=== PATIENT | male | born 1955 | race Caucasian/White ===

== ENCOUNTER 2022-05-02 17:25 | Inpatient (IN) | payer MEDICARE, BC ==
[~2022-05-02] VITALS: Ht 172.7 cm; Wt 74.4 kg
--- NOTE | 2022-05-02 17:42 | NUR ---
ILL THIS PAST SUNDAY WELL. BIB [facility] FROM HOME,TOOK 10 TABLETS OF AMBIEN (10 MG/TAB) AT 10 AM. PT IS DROWSY, RESPONDS TO PAIN. ATTACHED TO MONITOR, PT IS HYPOTENSIVE, AWARE. PT STATED THAT HE TOOK PILL THIS PAST SUNDAY WELL. DR HOLT AT BEDSIDE. GULSHAN D ORDERS
[2022-05-02 18:05] LABS: BASOPHILS % (AUTO) 0.2 % (0.0-2.0); EOSINOPHILS % (AUTO) 0.1 % (0.0-6.0); HEMATOCRIT 47 % (39-51); HEMOGLOBIN 15.2 g/dL (13.5-17.5); LYMPHOCYTES % (AUTO) 7.9 % (20.0-44.0); MEAN CORPUSCULAR HGB CONC 32 g/dl (31.0-36.0); MEAN CORPUSCULAR VOLUME 81 fL (80-96); MONOCYTES # (AUTO) 0.6 K/uL (0.1-1.30); MONOCYTES % (AUTO) 4.8 % (2.0-12.0); NEUTROPHILS # (AUTO) 10.8 K/uL (1.8-8.9); PLATELET COUNT (AUTO) 222 K/uL (150-450); RED BLOOD CELL COUNT(AUTO) 5.78 MIL/uL (4.5-6.0); WHITE BLOOD COUNT (AUTO) 12.4 K/uL (4.3-11.0)
--- NOTE | 2022-05-02 18:06 | NUR ---
POISON CONTROL CALLED,SPOKE WITH HARRISON, RECOMMENDED 6 HR MINIMUM OBSERVATION WITH SUPPORTIVE CARE, WATCH OUT FOR SEIZURES DUE TO HIS OTHER MEDICATIONS. DR HOLT MADE AWARE
[2022-05-02 18:16] LABS: CALCIUM, SERUM 8.4 mg/dL (8.5-10.1); CARBON DIOXIDE 29 mmol/L (21-32); CHLORIDE 103 mmol/L (98-107); CREATININE 1.1 mg/dL (0.6-1.3); GLUCOSE 105 mg/dL (74-106); POTASSIUM 4.2 mmol/L (3.5-5.1); SODIUM SERUM 139 mmol/L (136-145); UREA NITROGEN, BLOOD 32 mg/dL (7-18)
--- NOTE | 2022-05-02 18:20 | NUR ---
CHRIS COLLECTED AND SENT
--- NOTE | 2022-05-02 18:20 | NUR ---
URINE COLLECTED AND SENT
[2022-05-02 18:22] LABS: ALANINE AMINOTRANSFERASE 18 U/L (12-78); ALBUMIN 3.6 g/dL (3.4-5.0); ALKALINE PHOSPHATASE 46 U/L (46-116); ASPARTATE AMINOTRANSFERASE 8 U/L (15-37); BILIRUBIN,DIRECT 0.1 mg/dL (0.0-0.2); BILIRUBIN,TOTAL 0.7 mg/dL (0.2-1.0); TOTAL PROTEIN, SERUM 6.8 g/dL (6.4-8.2)
[2022-05-02 18:23] LABS: ACETAMINOPHEN < 2 ug/ml (10-30); ALCOHOL, BLOOD < 3 mg/dL (0-0)
--- NOTE | 2022-05-02 19:15 | NUR ---
MOVE SHEET SUBMITTED.
[2022-05-02 19:41] LABS: BILIRUBIN,URINE NEGATIVE (NEGATIVE); COLOR,URINE YELLOW (YELLOW); LEUKOCYTE ESTERASE ,URINE NEGATIVE (NEGATIVE); NITRITE, URINE NEGATIVE (NEGATIVE); PH,URINE 5.5 (5.0-8.0); PROTEIN,URINE NEGATIVE (NEGATIVE); UGLUCOSE >=1000 mg/dL (NEGATIVE); UROBILINOGEN,URINE 0.2 EU/dL (0.2)
--- NOTE | 2022-05-02 19:54 | NUR ---
[facility] SWAB COLLECTED AND SENT TO LAB. PATIENT'S BELONGINGS LIST DONE.
[2022-05-02] MEDS ORDERED: IV NS 0.9% 250 ML BAG IV ONE (20:00)
--- NOTE | 2022-05-02 22:50 | NUR ---
REPORT GIVEN TO CATRACHITA MOYA
--- NOTE | 2022-05-02 23:28 | NUR ---
PT TRANSFERRED VSS.
[2022-05-03] MEDS ORDERED: AZIL40TA PO (00:11)
[2022-05-03] MEDS ORDERED: FAMO20TA8 PO (00:12)
[2022-05-03] MEDS ORDERED: BUSP30TA2 PO (00:13)
[2022-05-03] MEDS ORDERED: EMPA25TA PO (00:14)
[2022-05-03] MEDS ORDERED: FLUO40CA49 PO (00:15)
[2022-05-03] MEDS ORDERED: QUET25TA PO (00:16)
[2022-05-03] MEDS ORDERED: OMEP20CA15 PO (00:17)
[2022-05-03] MEDS ORDERED: METO5TAB2 PO (00:18)
[2022-05-03] MEDS ORDERED: ROSU5TAB13 PO (00:20)
[2022-05-03] MEDS ORDERED: ACETAMINOPHEN 325 MG TABLET PO PRN (00:30)
[2022-05-03] MEDS ORDERED: MAG HYDROX/AL HYDROX/SIMETH 30 ML UDC PO PRN (00:30)
[2022-05-03] MEDS ORDERED: BLOOD SUGAR DIAGNOSTIC 1 EACH STRIP IN ONE (00:30)
[2022-05-03] MEDS ORDERED: clonazePAM 0.5 MG TABLET PO SCH (00:30)
[2022-05-03] MEDS ORDERED: MAGNESIUM HYDROXIDE 30 ML UDC PO PRN (00:30)
--- NOTE | 2022-05-03 01:01 | NUR ---
GPS RN ADMITTING NOTES: PATIENT ARRIVED THIS UNIT ON A STRETCHER WITH AN ER ESCORT AT 2330. PATIENT IS ON A 5150 HOLD FOR DTS, HOLD WAS PLACED ON 05/02/22 @ 2141. PER HOLD, PATIENT WAS BIB [facility] TO ER BECAUSE PATIENT HAD OVERDOSED ON 10 PILLS OF 10MG OF AMBIEN TWICE IN A ROW. PATIENT TOLD [facility] HE IS GOING TO KEEP ON DOING IT UNTIL "THEY FIND OUT WHAT IS WRONG WITH ME AND MY GI ISSUES". PER HOLD, PATIENT REPORTED PATIENT HAS BEEN DEPRESSED LATELY, ISOLATIVE AND WITHDRAWN. UPON FACE TO FACE EVALUATION, PATIENT IS A/O X2, APPEARS DEPRESSED, BLUNTED AFFECT, SLURRED SPEECH, LETHARGIC, DISORGANIZED, LOOSE ASSOCIATIONS, POOR HISTORIAN AND UNABLE TO AMBULATE. PATIENT HAS NO COMPLAINTS OF PAIN AT THIS TIME. NO S/S OF DISTRESS. RESPIRATION EVEN AND UNLABORED WITH EQUAL RISE AND FALL OF THE CHEST, ON ROOM AIR. ACCU CHEK DONE, BS88MG/DL. SKIN ASSESSMENT DONE, SKIN INTACT. PATIENT DENIES SI/HI AT THIS TIME. PATIENT REFUSED TO SIGNS ALL ADMISSION PAPER WORK. PATIENT ADVISED OF HIS HOLD AND PATIENT RIGHTS BOOKLET AND PRESCRIPTION MEDICATION GUIDE GIVEN. PATIENT IS UNDER THE PSYCHIATRIC CARE OF DR. URENA AND MEDICAL CARE OF DR HOSKINS. PATIENT BELONGINGS INVENTORIED AND CONTRABAND REMOVED AND PLACED IN CONTRABAND LOCKER. PATIENT EDUCATED ON THE USE OF CALL LIGHT. PATIENT BED IS LOCKED AND IN LOWEST POSITION, SIDE RAILS ARE UP X2 FOR SAFETY. PATIENT OFFERED FLUID AND SNACKS TOLERATED. WILL CONTINUE TO MONITOR PATIENT Q15 MIN FOR SAFETY, MOOD AND BEHAVIOR.
[2022-05-03 01:26] VITALS: BP 124/72
[2022-05-03 08:00] VITALS: BP 106/59
--- NOTE | 2022-05-03 09:08 | NUR ---
EARL Initial Discharge: Patient currently resides at home located at [address] [place] [address]; ([phone]). Pt would want to return back home upon discharge. EARL will work with the MD, family, and pt to help coordinate appropriate discharge.
--- NOTE | 2022-05-03 09:08 | NUR ---
EARL Clinical Note: Pt placed on a 5150 hold for danger to himself. Pt overdosed on ambien at home due to having medical issues and being depressed. Patient currently resides at home located at [address] [place] [address]; ([phone]). Pt would want to return back home upon discharge.
--- NOTE | 2022-05-03 09:09 | NUR ---
Social Work Note/Substance Abuse Intervention: Patient was provided with a brief substance abuse intervention and referred to [facility] ([phone]), [facility] ([phone]), and [facility] ([phone]) for overdosing on Ambien.
--- NOTE | 2022-05-03 09:15 | NUR ---
Treatment Plan: Pt refused to sign treatment plan due to being suspicious.
--- NOTE | 2022-05-03 09:51 | NUR ---
RN OPENING NOTE PATIENT AWAKE IN BED RESTING. A/O X2 CONFUSED, ISOLATIVE. NO S/S OF PAIN NOTED AT THIS TIME. ON ROOM AIR, NO DISTRESS OR SHORTNESS OF BREATH NOTED. PATIENT IS COMPLIANT WITH MEDICATIONS. PATIENT DENIES SUICIDE IDEATION AND HOMICIDAL IDEATIONS AT THIS TIME. FALL AND SAFETY MEASURES IN PLACE, BED ALARM ON, BED IN LOW AND LOCK POSITION, CALL LIGHT AND TABLE WITHIN EASY REACH, SIDE RAILS UP X2. WILL CONTINUE TO MONITOR Q15 MINUTES WITH HELP OF STAFF TO MAINTAIN SAFETY.
--- NOTE | 2022-05-03 10:04 | NUR ---
EARL Family Contact: EARL spoke with patient's Arlyn ([phone]) and discussed treatment/discharge plan. Arlyn stated that she is concerned for pt to come back home. EARL gave two options: Nursing facility or home with home health arranged. She stated that she would speak to pt to make a decision. EARL also educated on [phone]. She is aware.
[2022-05-03] MEDS ORDERED: METOCLOPRAMIDE HCL PO SCH (13:00)
[2022-05-03] MEDS: METOCLOPRAMIDE HCL 10 MG TABLET PO SCH ×5 (13:40→21:48)
[2022-05-03] MEDS: ENSURE ENLIVE 237 ML LIQUID (VANILLA) PO SCH ×2 (14:21→17:19)
[2022-05-03 16:00] VITALS: BP 119/91
[2022-05-03] MEDS ORDERED: DEXTROSE 50%-WATER 50 ML DISP.SYRIN IV PRN (19:00)
--- NOTE | 2022-05-03 19:15 | NUR ---
GPS RN NOTES RECEIVED PATIENT IN BED AWAKE, ALERT AND ORIENTED X3. ABLE TO MAKE NEEDS KNOWN. NO S/SX OF ACUTE DISTRESS NOTED. PATIENT REMAINS ANXIOUS, DEMANDING, NEEDY, ARGUMENTATIVE, HYPERVERBAL. NO VERBALIZATION OF THOUGHTS AND FEELINGS. SAFETY PRECAUTIONS IN PLACE. WILL CONTINUE TO MONITOR Q15MIN ROUNDS FOR SAFETY AND BEHAVIOR.
--- NOTE | 2022-05-03 19:30 | NUR ---
GPS RN NOTES PATIENT IS REQUESTING FOR MIRALAX. PATIENT STATES, "I AM TAKING THIS MED AT HOME". CALLED DR. HOSKINS ORDER NOTED AND CARRIED OUT.
[2022-05-03 20:00] VITALS: BP 110/62
[2022-05-03] MEDS: BLOOD SUGAR DIAGNOSTIC 1 EACH STRIP IN SCH (21:25)
[2022-05-03] MEDS: MIRTAZAPINE 15 MG TABLET PO SCH (21:34)
[2022-05-03] MEDS: POLYETHYLENE GLYCOL 3350 17 GM POWD.PACK PO SCH (21:34)
[2022-05-03] MEDS ORDERED: ALFU10TA10 PO (21:53)
[2022-05-03] MEDS: TEMAZEPAM 7.5 MG CAPSULE PO PRN (22:40)
[2022-05-03] MEDS: FINASTERIDE (5 MG) 5 MG TABLET PO SCH (22:40)
[2022-05-04] MEDS: BLOOD SUGAR DIAGNOSTIC 1 EACH STRIP IN SCH ×4 (07:58→21:51)
[2022-05-04 08:00] VITALS: BP 141/97
[2022-05-04 08:05] LABS: CHOLESTEROL 137 mg/dL (<200); HDL CHOLESTEROL 40 mg/dL (40-60); LDL 82 mg/dL (0-99); TRIGLYCERIDES 50 mg/dL (30-150)
[2022-05-04 08:11] LABS: ALBUMIN 3.3 g/dL (3.4-5.0); BILIRUBIN,TOTAL 0.5 mg/dL (0.2-1.0); CALCIUM, SERUM 8.4 mg/dL (8.5-10.1); CREATININE 1.1 mg/dL (0.6-1.3); POTASSIUM 3.7 mmol/L (3.5-5.1); TOTAL PROTEIN, SERUM 6.7 g/dL (6.4-8.2)
[2022-05-04] MEDS: LOSARTAN POTASSIUM 50 MG TABLET PO SCH (08:28)
[2022-05-04] MEDS: PANTOPRAZOLE 40 MG TABLET.DR PO SCH (08:28)
[2022-05-04] MEDS: ATORVASTATIN 10 MG TABLET PO SCH (08:31)
[2022-05-04] MEDS: METOCLOPRAMIDE HCL 10 MG TABLET PO SCH ×4 (08:33→21:30)
[2022-05-04] MEDS ORDERED: Medication Not On Formulary EA (Rosuvastatin Calcium 1 TAB) PO SCH (09:00)
--- NOTE | 2022-05-04 09:28 | NUR ---
EARL Family Contact: EARL spoke with patient's Arlyn ([phone]) who stated that she had found a facility for pt called [facility]. She reported that Chalino from admissions will be calling this comic writer to gather information.
[2022-05-04] MEDS: GLUCERNA SHAKE 237 ML CAN PO SCH ×3 (09:38→17:49)
--- NOTE | 2022-05-04 10:01 | NUR ---
Facility Contact: EARL spoke with admissions at [facility] and requested to speak with Chalino. They stated to fax pt's clinicals ([phone]) and Chalino will review and contact this commercial insurance underwriter today.
--- NOTE | 2022-05-04 10:37 | NUR ---
Facility Contact: SW received a call from Que ([phone]) outpatient coordinator from [facility] who stated that he will be doing an assessment at noon for pt.
--- NOTE | 2022-05-04 15:10 | NUR ---
Facility Contact: EARL spoke with Que ([phone]) who stated that pt is accepted and can take pt 05/05/2022.
[2022-05-04 16:00] VITALS: BP 130/101
--- NOTE | 2022-05-04 18:37 | NUR ---
RN-NOTES PATIENT IN THE ROOM A/O X3 INTERACTING WITH HIS SON.NO ACUTE DISTRESS NOTED. AMBULATORY STEADY GAIT. COMPLIANT WITH MEDICATIONS. ABLE TO MAKE NEEDS KNOWN TO THE STAFF. ALL NEEDS ATTENDED AND ANTICIPATED. WILL CONT. MONITORING FOR SAFETY AND BEHAVIOR. WILL ENDORSE TO INCOMING NURSE FOR CONTINUITY OF CARE.
[2022-05-04] MEDS: FINASTERIDE (5 MG) 5 MG TABLET PO SCH (18:56)
[2022-05-04] MEDS: JARDIANCE 25 MG PO SCH (19:00)
[2022-05-04 20:00] VITALS: BP 139/85
--- NOTE | 2022-05-04 20:04 | NUR ---
RN OPENING NOTES; RECEIVED PATIENT IN THE ROOM A/O X3 INTERACTING WITH HIS SON.NO ACUTE DISTRESS NOTED. AMBULATORY STEADY GAIT. COMPLIANT WITH MEDICATIONS. ABLE TO MAKE NEEDS KNOWN TO THE STAFF. ALL NEEDS ATTENDED AND ANTICIPATED. WILL CONTINUE TO MONITOR Q15MIN FOR SAFETY AND BEHAVIORAL.
[2022-05-04] MEDS: MIRTAZAPINE 15 MG TABLET PO SCH (21:29)
[2022-05-04] MEDS: POLYETHYLENE GLYCOL 3350 17 GM POWD.PACK PO SCH (21:30)
[2022-05-04] MEDS: TEMAZEPAM 7.5 MG CAPSULE PO PRN (23:13)
[2022-05-05 07:06] LABS: BASOPHILS % (AUTO) 0.4 % (0.0-2.0); EOSINOPHILS % (AUTO) 1.2 % (0.0-6.0); HEMATOCRIT 45 % (39-51); HEMOGLOBIN 14.9 g/dL (13.5-17.5); LYMPHOCYTES # (AUTO) 1.3 K/uL (0.8-4.8); LYMPHOCYTES % (AUTO) 21.6 % (20.0-44.0); MEAN CORPUSCULAR HGB CONC 33 g/dl (31.0-36.0); MEAN CORPUSCULAR VOLUME 81 fL (80-96); MONOCYTES # (AUTO) 0.6 K/uL (0.1-1.30); MONOCYTES % (AUTO) 9.9 % (2.0-12.0); NEUTROPHILS # (AUTO) 4.1 K/uL (1.8-8.9); NEUTROPHILS % (AUTO) 66.9 % (43.0-81.0); PLATELET COUNT (AUTO) 183 K/uL (150-450); RED BLOOD CELL COUNT(AUTO) 5.58 MIL/uL (4.5-6.0); WHITE BLOOD COUNT (AUTO) 6.1 K/uL (4.3-11.0)
[2022-05-05 07:26] LABS: CALCIUM, SERUM 8.7 mg/dL (8.5-10.1)
[2022-05-05] MEDS: GLUCERNA SHAKE 237 ML CAN PO SCH (07:47)
[2022-05-05] MEDS: BLOOD SUGAR DIAGNOSTIC 1 EACH STRIP IN SCH (07:47)
--- NOTE | 2022-05-05 07:51 | NUR ---
EARL Discharge Note: Patient will be discharged to [facility] in [place] located at [address], [place] [address]; ([phone]). Patients Arlyn ([phone]) will turkey picker pt at 9AM. EARL spoke with Que ([phone]) from admissions who stated that pt is welcomed today. Pt is alert and oriented x4. Pt denies suicidal or homicidal ideation. Pt denies visual/auditory hallucinations. Pt will follow up with (Psychiatrist) Dr. Wade located at [address] [place] [id number]; ([phone]) and (Bilingual Instructor) Dr. Browning located at [address] [place] [address], [place] [address]; ([phone]). Patient presents with euthymic mood and congruent affect.
[2022-05-05] MEDS: PANTOPRAZOLE 40 MG TABLET.DR PO SCH (08:15)
[2022-05-05] MEDS: ATORVASTATIN 10 MG TABLET PO SCH (08:20)
[2022-05-05] MEDS: JARDIANCE 25 MG PO SCH (08:20)
[2022-05-05] MEDS: METOCLOPRAMIDE HCL 10 MG TABLET PO SCH (08:20)
[2022-05-05 08:21] VITALS: BP 143/78
[2022-05-05] MEDS: LOSARTAN POTASSIUM 50 MG TABLET PO SCH (08:21)
[2022-05-05] MEDS ORDERED: KEY,NONCONTROL,TO KEEP IN PYXI 1 EA MC ONE (08:44)
--- NOTE | 2022-05-05 09:10 | NUR ---
RN-DISCHARGE NOTES PATIENT HAD A DISCHARGE ORDER FROM ENRIQUETA ALFRED (PSYCHIATRIST) JOHANNE LOVE MEDICALLY CLEARED PATIENT FOR DISCHARGE. PATIENT DID NOT VERBALIZE SI/HI,DENIES VISUAL/AUDITORY HALLUCINATIONS AT THE TIME OF DISCHARGE. PATIENT WAS DISCHARGED TO [facility]. ALL DISCHARGED MEDICATIONS WAS REVIEWED WITH THE PATIENT WITH UNDERSTANDING. RX AND ALL DISCHARGED PAPERS WAS SIGN BY THE PATIENT.RX AND DISCHARGED COPY WAS GIVEN TO THE PATIENT.PATIENT LEFT THE UNIT AMBULATORY STEADY GAIT, IN STABLE CONDITION A/O X3-4, NO ACUTE DISTRESS NOTED. ALL BELONGINGS WAS GIVEN BACK TO THE PATIENT INCLUDING OWN MEDICATIONS. PATIENT WAS ESCORTED BY ONE TIMBER SURVEYOR STAFF TO THE LOBBY FOR SAFETY. AVIATION TECHNICIAN AIR[employer]FT BY [employer]IA PRIVATE CAR.
== END 2022-05-05 09:10 | disposition home or self-care (01) | DRG 885 ==
LOC: ER 17:29 → GPS 22:13
PROVIDERS: ADMIT Nurse Practitioner Psychiatric/Mental Health; ATTEND Nurse Practitioner Family
DX: F32.2 Major depressive disorder, single episode, severe without psychotic features (principal); T42.6X1A Poisoning by other antiepileptic and sedative-hypnotic drugs, accidental (unintentional), initial encounter; R45.851 Suicidal ideations; F29 Unspecified psychosis not due to a substance or known physiological condition; F41.9 Anxiety disorder, unspecified; Z20.822 Contact with and (suspected) exposure to COVID-19; I10 Essential (primary) hypertension; E11.9 Type 2 diabetes mellitus without complications; Y92.9 Unspecified place or not applicable; D72.829 Elevated white blood cell count, unspecified; R79.89 Other specified abnormal findings of blood chemistry; Z79.899 Other long term (current) drug therapy; F39 Unspecified mood [affective] disorder; Z96.611 Presence of right artificial shoulder joint; Z98.890 Other specified postprocedural states
CPT/HCPCS: 36415; 80048-TC; 80053-TC; 80061-TC; 80076-TC; 82962-TC; 85025-TC; 87081-TC; 97116-TC; 97530-TC; C9803; G0480; J8597